=== PATIENT | male | born 1985 | race African-American/Black ===

== ENCOUNTER 2019-02-22 18:44 | Emergency (ER) | payer BC, OTHER ==
[~2019-02-22] VITALS: Ht 175.3 cm; Wt 68.0 kg
[~2019-02-22 18:44] MED LIST: IBUPROFEN600 MG ORAL; TRAMADOL HCL50 MG ORAL; ZOFRAN ODT4 MG ORAL
[2019-02-22] MEDS ORDERED: CYCLOBENZAPRINE10 MG ORAL (18:56)
[2019-02-22] MEDS ORDERED: NAPROXEN375 M2 ORAL (18:56)
[2019-02-22 19:00] VITALS: BP 112/72
--- NOTE | 2019-02-22 19:00 | NUR ---
ED Nurse Note: Patient walked in with lower abdominal pain, nausea, vomiting nad headache that was started 1400 today. As per patient he feels those symptoms after eating lunch. Pt took OTC medication for stomach pain. No stated medical history. alert nad oriented. No SOB. Afebrile. VSS.
[2019-02-22] MEDS ORDERED: Mylanta II UD 30ml ORAL ONE (19:30)
[2019-02-22] MEDS ORDERED: Dicyclomine HCl 10mg/5ml oral soln ORAL ONE (19:30)
[2019-02-22] MEDS ORDERED: Lidocaine 2% Visc 15ml soln ORAL ONE (19:30)
--- NOTE | 2019-02-22 19:40 | NUR ---
ED Nurse Note: IV line established. Blood collected and sent to lab
[2019-02-22 19:51] LABS: HEMATOCRIT 43.3 % (42.0-52.0); HEMOGLOBIN 15.7 G/DL (14.2-18.0); MEAN CORPUSCULAR VOLUME 89 FL (80-99); PLATELET COUNT 119 K/UL (150-450); RED BLOOD COUNT 4.83 M/UL (4.70-6.10); RED CELL DISTRIBUTION WIDTH 9.8 % (11.6-14.8); WHITE BLOOD COUNT 9.8 K/UL (4.8-10.8)
[2019-02-22 19:53] LABS: BASOPHILS % (AUTO) 1.1 % (0.0-2.0); LYMPHOCYTES % (AUTO) 4.4 % (20.0-45.0); MONOCYTES % (AUTO) 3.3 % (1.0-10.0); NEUTROPHILS % (AUTO) 91.2 % (45.0-75.0)
[2019-02-22 20:20] LABS: ANION GAP 6 mmol/L (5-15); BLOOD UREA NITROGEN 14 mg/dL (7-18); CARBON DIOXIDE 28 MMOL/L (21-32); CHLORIDE 104 MMOL/L (98-107); POTASSIUM 3.8 MMOL/L (3.5-5.1); SODIUM 138 MMOL/L (136-145)
--- NOTE | 2019-02-22 20:21 | Emergency Room Report ---
History of Present Illness General Chief Complaint: Abdominal Pain Source: Patient Present Illness HPI 34-year-old male presents to the emergency department complaining of 10 out of 10 severity diffuse abdominal pain with nausea, vomiting since 2 PM. Patient reports his last oral intake was 8 AM. 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 Patient denies fevers or chills he denies marijuana product usage. Patient denies recent head trauma or fall. He denies blood in the vomit or stool or black tarry stools. Patient denies previous abdominal surgeries. He denies neck pain/stiffness or photophobia. Denies back pain, dysuria, hematuria , urinary frequency or urgency. He also reports a progressive 5/10 in severity generalized HOWELL. He denies trauma or fall. Reports mild concussion last year. Pt. denies sudden onset HOWELL or visual changes. He denies loss of gross motor movements or weakness. Allergies: Coded Allergies: No Known Allergies (Unverified , 07/27/15) Patient History Past Medical History: see triage record Past Surgical History: none Pertinent Family History: none Reviewed Nursing Documentation: PMH: Agreed; PSxH: Agreed Nursing Documentation-PMH Past Medical History: No Stated History Review of Systems All Other Systems: negative except mentioned in HPI Physical Exam Vital Signs Date Time Temp Pulse Resp B/P (MAP) Pulse Ox O2 Delivery O2 Flow Rate FiO2 02/22/19 18:53 98.2 107 23 112/72 (85) 98 Room Air Sp02 EP Interpretation: reviewed, normal General Appearance: no apparent distress, alert, GCS 15, non-toxic Head: normocephalic, atraumatic Eyes: bilateral eye normal inspection, bilateral eye PERRL ENT: hearing grossly normal, normal voice Neck: full range of motion, no meningismus, no bony tend Respiratory: lungs clear, normal breath sounds, speaking full sentences Cardiovascular #1: regular rate, rhythm Gastrointestinal: normal bowel sounds, non tender, soft, no mass, non-distended , no guarding Rectal: deferred Genitourinary: normal inspection, no CVA tenderness Musculoskeletal: gait/station normal, normal range of motion, non-tender Neurologic: alert, oriented x3, responsive, motor strength/tone normal, sensory intact, speech normal, grossly normal Psychiatric: judgement/insight normal Skin: no rash Lymphatic: no adenopathy Medical Decision Making PA Attestation Dr. Ghosh is my supervising Physician whom patient management has been discussed with. Diagnostic Impression: Primary Impression: Abdominal pain Qualified Codes: R10.84 - Generalized abdominal pain Additional Impression: Nausea, vomiting, and diarrhea ER Course 34-year-old male presents to the emergency department complaining of 10 out of 10 severity diffuse abdominal pain with nausea, vomiting since 2 PM. Patient reports his last oral intake was 8 AM. 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 Patient denies fevers or chills he denies marijuana product usage. Patient denies recent head trauma or fall. He denies blood in the vomit or stool or black tarry stools. Patient denies previous abdominal surgeries. He denies neck pain/stiffness or photophobia. Denies back pain, dysuria, hematuria , urinary frequency or urgency. He also reports a progressive 5/10 in severity generalized HOWELL. He denies trauma or fall. Reports mild concussion last year. Pt. denies sudden onset HOWELL or visual changes. He denies loss of gross motor movements or weakness. Ddx considered but are not limited to Diverticulitis, acute appendicitis, diarrhea,UC, PUD, GE, pancreatitis, gallstone, acute intracranial process, just to name a few. Vital signs: are WNL, pt. is afebrile H&PE are most consistent with acute gastritis will r/o acute abdomen. ORDERS: CBC, CMP, lipase, UA- WNL ED INTERVENTIONS: -- 1000NS, -Pepcid PO -zofran 4mg. PO -Lidocaine PO -Mylanta PO -Bentyl PO Pt reports his abdominal pain has subsided and his HOWELL has almost completely resolved as well. After above interventions this patient successfully completed oral fluid challenge without nausea or vomiting. DISCHARGE: At this time pt. is stable for d/c to home. Will provide printed patient care instructions, and any necessary prescriptions. Care plan and follow up instructions have been discussed with the patient prior to discharge. Labs Test 02/22/19 19:37 02/22/19 20:24 White Blood Count 9.8 K/UL (4.8-10.8) Red Blood Count 4.83 M/UL (4.70-6.10) Hemoglobin 15.7 G/DL (14.2-18.0) Hematocrit 43.3 % (42.0-52.0) Mean Corpuscular Volume 89 FL (80-99) Mean Corpuscular Hemoglobin 32.5 PG (27.0-31.0) Mean Corpuscular Hemoglobin Concent 36.3 G/DL (32.0-36.0) Red Cell Distribution Width 9.8 % (11.6-14.8) Platelet Count 119 K/UL (150-450) Mean Platelet Volume 9.6 FL (6.5-10.1) Neutrophils (%) (Auto) 91.2 % (45.0-75.0) Lymphocytes (%) (Auto) 4.4 % (20.0-45.0) Monocytes (%) (Auto) 3.3 % (1.0-10.0) Eosinophils (%) (Auto) 0.0 % (0.0-3.0) Basophils (%) (Auto) 1.1 % (0.0-2.0) Sodium Level 138 MMOL/L (136-145) Potassium Level 3.8 MMOL/L (3.5-5.1) Chloride Level 104 MMOL/L (98-107) Carbon Dioxide Level 28 MMOL/L (21-32) Anion Gap 6 mmol/L (5-15) Blood Urea Nitrogen 14 mg/dL (7-18) Creatinine 1.0 MG/DL (0.55-1.30) Estimat Glomerular Filtration Rate > 60 mL/min (>60) Glucose Level 99 MG/DL (74-106) Calcium Level 9.0 MG/DL (8.5-10.1) Total Bilirubin 1.0 MG/DL (0.2-1.0) Aspartate Amino Transf (AST/SGOT) 46 U/L (15-37) Alanine Aminotransferase (ALT/SGPT) 95 U/L (12-78) Alkaline Phosphatase 50 U/L (46-116) Total Protein 8.0 G/DL (6.4-8.2) Albumin 4.0 G/DL (3.4-5.0) Globulin 4.0 g/dL Albumin/Globulin Ratio 1.0 (1.0-2.7) Lipase 163 U/L (73-393) Urine Color Yellow Urine Appearance Clear Urine pH 6.5 (4.5-8.0) Urine Specific Posey 1.015 (1.005-1.035) Urine Protein 1+ (NEGATIVE) Urine Glucose (UA) Negative (NEGATIVE) Urine Ketones 3+ (NEGATIVE) Urine Blood Negative (NEGATIVE) Urine Nitrite Negative (NEGATIVE) Urine Bilirubin Negative (NEGATIVE) Urine Urobilinogen 4 MG/DL (0.0-1.0) Urine Leukocyte Esterase Negative (NEGATIVE) Last Vital Signs Date Time Temp Pulse Resp B/P (MAP) Pulse Ox O2 Delivery O2 Flow Rate FiO2 02/22/19 19:00 107 23 Room Air 02/22/19 19:00 98.2 112/72 98 Disposition: HOME, SELF-CARE Condition: Stable Referrals: [facility] Departure Forms: Return to Work Return to Work Date: Feb 25, 2019 Work Restrictions: None Other Restrictions: May return Sooner if Symptoms have resolved. Return to Full Activity: Feb 25, 2019 Patient Instructions: Abdominal Pain, Adult, Gastritis, Adult Additional Instructions: Take medications as directed. Follow up with a Primary Care Provider in 3-5 days, even if your symptoms have resolved. --Please review list of primary care clinics, if you do not already have a primary care provider Return sooner to ED if new symptoms occur, or current symptoms become worse. - Please note that this Emergency Department Report was dictated using Innohubradioactivity technician technology software, occasionally this can lead to erroneous entry secondary to interpretation by the dictation equipment. Josiane Andrews Feb 22, 2019 20:21
[2019-02-22 20:25] LABS: ALANINE AMINOTRANSFERASE 95 U/L (12-78); ALKALINE PHOSPHATASE 50 U/L (46-116); ASPARTATE AMINO TRANSFERASE 46 U/L (15-37)
[2019-02-22] MEDS ORDERED: Ketorolac 30mg Inj IV ONE (20:30)
[2019-02-22 21:02] LABS: APPEARANCE,URINE CLEAR; BILIRUBIN, URINE NEGATIVE (NEGATIVE); GLUCOSE, URINE (UA) NEGATIVE (NEGATIVE); KETONES,URINE 3+ (NEGATIVE); LEUKOCYTE ESTERASE ,URINE NEGATIVE (NEGATIVE); NITRITE,URINE NEGATIVE (NEGATIVE); PH,URINE 6.5 (4.5-8.0); PROTEIN,URINE 1+ (NEGATIVE); UROBILINOGEN,URINE 4 MG/DL (0.0-1.0)
[2019-02-22 21:12] LABS: COLOR,URINE YELLOW
[2019-02-22] MEDS ORDERED: ONDANSETRON ODT4 MG BC (21:17)
[2019-02-22] MEDS ORDERED: ZANTAC150 MG ORAL (21:17)
[2019-02-22] MEDS ORDERED: LIDOCAINE VISC100 ML ORAL (21:17)
[2019-02-22] MEDS ORDERED: DICYCLOMINE HCL10 MG ORAL (21:17)
[2019-02-22 21:30] VITALS: BP 112/72
--- NOTE | 2019-02-22 21:30 | NUR ---
ED Nurse Note: Pt cleared by ERMD for discharge. DC instructions/prescription was given and explained to pt and verbalized understanding of teachings. All medical deviecs such as ID band and IV line removed. Pt is AAO x4, ambulatory and left with all personal belongings. Accompanied by family member.
== END 2019-02-22 21:30 | disposition home or self-care (01) ==
LOC: EMR 19:20
DX: R10.84 Generalized abdominal pain (principal); R11.2 Nausea with vomiting, unspecified; R19.7 Diarrhea, unspecified; R51 Headache
CPT/HCPCS: 36415; 80053; 81003; 83690; 85025; 96361; 96374; 96375; 99284; J1885; J2405

== ENCOUNTER 2019-12-01 06:28 | Emergency (ER) | payer OTHER ==
[~2019-12-01] VITALS: Ht 175.3 cm; Wt 68.0 kg
[~2019-12-01 06:28] MED LIST changes: +CYCLOBENZAPRINE10 MG ORAL; +DICYCLOMINE HCL10 MG ORAL; +LIDOCAINE VISC100 ML ORAL; +NAPROXEN375 M2 ORAL; +ONDANSETRON ODT4 MG BC; +ZANTAC150 MG ORAL
--- NOTE | 2019-12-01 06:48 | Emergency Room Report ---
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 inserted an instrument and was twisting, he noticed blood, prior to arrival, severity is moderate, constant he feels a sharp pain, no hearing loss, patient presents for evaluation and treatment no alleviating factors Allergies: Coded Allergies: No Known Allergies (Unverified , 07/27/15) COVID-19 Screening Contact w/high risk pt: No Experienced COVID-19 symptoms?: No COVID-19 Testing performed 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 Patient History Past Medical History: see triage record Reviewed Nursing Documentation: PMH: Agreed; PSxH: Agreed Nursing Documentation-PMH Past Medical History: No Stated History Review of Systems All Other Systems: negative except mentioned in HPI Physical Exam Vital Signs Date Time Temp Pulse Resp B/P (MAP) Pulse Ox O2 Delivery O2 Flow Rate FiO2 12/01/19 06:36 98.2 81 20 132/84 (100) 99 Room Air General Appearance: well appearing, no apparent distress Head: normocephalic, atraumatic ENT: hearing grossly normal, normal voice, other - Right TM: Abrasions to the canal, with some blood difficult to appreciate TM due to wax present Neck: full range of motion, supple Respiratory: no respiratory distress, speaking full sentences Musculoskeletal: no calf tenderness Neurologic: alert, normal gait Psychiatric: mood/affect normal Skin: no rash Medical Decision Making Diagnostic Impression: Primary Impression: Trauma of ear canal Qualified Codes: S09.91XA - Unspecified injury of ear, initial encounter ER Course 34-year-old male presents with traumatic irritation to the ear canal, no acute interventions at this time supportive care considered otitis media considered perforation Last Vital Signs Date Time Temp Pulse Resp B/P (MAP) Pulse Ox O2 Delivery O2 Flow Rate FiO2 12/01/19 06:36 98.2 81 20 132/84 (100) 99 Room Air Disposition: HOME, SELF-CARE Condition: Stable Referrals: Yohannes Gonzalez MD (PCP) [facility] Patient Instructions: Earache Additional Instructions: The patient was provided with discharge instructions, notified to follow-up with a primary care doctor and or specialist in the next 24-48 hours, and to return to the ED if they have worsening of their symptoms. Please note that this report is being documented using archifyON technology. This can lead to erroneous entry secondary to incorrect interpretation by the dictating instrument. You may have damaged your ear canal with a Q-tip and Debrox, please watch for 5 to 7 days for improvement if it worsens please return to the ED or see ENT Rivera Hansen MD Dec 01, 2019 06:48
[2019-12-01 06:55] VITALS: BP 132/84
== END 2019-12-01 06:55 | disposition home or self-care (01) ==
LOC: EMR 06:43
DX: S09.91XA Unspecified injury of ear, initial encounter (principal); X58.XXXA Exposure to other specified factors, initial encounter; Y93.9 Activity, unspecified; Y92.9 Unspecified place or not applicable
CPT/HCPCS: 99281